=== PATIENT | female | born 1985 | race Caucasian/White ===

== ENCOUNTER 2018-04-27 10:46 | Outpatient (CLI) | payer OTHER ==
[2018-04-27 11:21] LABS: ADD UMIC NO; UR ASCORBIC ACID NEGATIVE (NEGATIVE); UR BILIRUBIN (Dip) NEGATIVE (NEGATIVE); UR BLOOD (Dip) NEGATIVE (NEGATIVE); UR CLARITY CLEAR (CLEAR); UR COLOR YELLOW (YELLOW); UR GLUCOSE (Dip) NEGATIVE (NEGATIVE); UR KETONES (Dip) TRACE mg/dL (NEGATIVE); UR LEUKOCYTE ESTERASE (Dip) NEGATIVE Leu/ul (NEGATIVE); UR NITRITE (Dip) NEGATIVE (NEGATIVE); UR SPECIFIC GRAVITY (Dip) 1.013 (1.003-1.030); UR TOTAL PROTEIN (Dip) NEGATIVE (NEGATIVE); UR UROBILINOGEN (Dip) 1+ mg/dL (NEGATIVE)
== END 2018-04-27 17:25 | disposition home or self-care (01) ==
LOC: OBT 10:46 → L-D 11:08 → OBT 17:25
DX: O26.843 Uterine size-date discrepancy, third trimester (principal); Z3A.35 35 weeks gestation of pregnancy
CPT/HCPCS: 76815; 76818; 76820; 81003

== ENCOUNTER 2018-04-29 09:18 | Outpatient (CLI) | payer OTHER | END 2018-04-29 11:50 | disposition home or self-care (01) | LOC: OBT 09:18 → L-D 09:18 → OBT 11:50 | DX: O62.9 Abnormality of forces of labor, unspecified (principal); Z3A.36 36 weeks gestation of pregnancy | CPT/HCPCS: 76815 ==

== ENCOUNTER 2018-05-04 22:48 | Outpatient (CLI) | payer OTHER ==
[2018-05-04 23:53] LABS: ADD UMIC NO; UR ASCORBIC ACID NEGATIVE (NEGATIVE); UR BILIRUBIN (Dip) NEGATIVE (NEGATIVE); UR BLOOD (Dip) NEGATIVE (NEGATIVE); UR CLARITY CLEAR (CLEAR); UR COLOR STRAW (YELLOW); UR GLUCOSE (Dip) NEGATIVE (NEGATIVE); UR KETONES (Dip) NEGATIVE (NEGATIVE); UR LEUKOCYTE ESTERASE (Dip) NEGATIVE Leu/ul (NEGATIVE); UR NITRITE (Dip) NEGATIVE (NEGATIVE); UR SPECIFIC GRAVITY (Dip) 1.011 (1.003-1.030); UR TOTAL PROTEIN (Dip) NEGATIVE (NEGATIVE); UR UROBILINOGEN (Dip) NEGATIVE (NEGATIVE)
[2018-05-05 00:48] LABS: ADD MAN DIFF? NO
[2018-05-05 00:50] LABS: BASOPHILS % 0.4 % (0.0-2.0); EOSINOPHILS # 0.3 10^3/ul (0.0-0.5); EOSINOPHILS % 4.2 % (0.0-7.0); HEMATOCRIT 31.9 % (37.0-47.0); LYMPHOCYTES # 2.4 10^3/ul (0.8-2.9); LYMPHOCYTES % 30.4 % (15.0-51.0); MEAN CORPUSCULAR HEMOGLOBIN 29.1 pg (29.0-33.0); MEAN CORPUSCULAR HGB CONC 31.3 g/dl (32.0-37.0); MEAN CORPUSCULAR VOLUME 92.7 fl (82.0-101.0); MEAN PLATELET VOLUME 9.2 fl (7.4-10.4); MONOCYTE # 0.5 10^3/ul (0.3-0.9); MONOCYTES % 6.4 % (0.0-11.0); NEUTROPHIL # 4.6 10^3/ul (1.6-7.5); NEUTROPHILS % 58.3 % (39.0-77.0); PLATELET COUNT 296 10^3/UL (140-415); RED BLOOD COUNT 3.44 10^6/ul (4.20-5.40); RED CELL DISTRIBUTION WIDTH 14.6 % (11.5-14.5)
[2018-05-05 00:50] LABS: WHITE BLOOD COUNT 7.8 10^3/ul (4.8-10.8)
[2018-05-05 01:08] LABS: ALANINE AMINOTRANSFERASE 12 IU/L (13-69); ALBUMIN 3.2 g/dl (3.3-4.9); ALKALINE PHOSPHATASE 131 IU/L (42-121); ANION GAP 10 (5-13); ASPARTATE AMINO TRANSFERASE 17 IU/L (15-46); BILIRUBIN,INDIRECT 0.1 mg/dl (0-1.1); BILIRUBIN,TOTAL 0.1 mg/dl (0.2-1.3); BLOOD UREA NITROGEN 8 mg/dl (7-20); CALCIUM 8.3 mg/dl (8.4-10.2); CARBON DIOXIDE 20 mmol/L (21-31); CHLORIDE 107 mmol/L (97-110); CREATININE 0.67 mg/dl (0.44-1.00); Estimated GFR > 60 mL/min (>60); GLUCOSE 81 mg/dl (70-220); POTASSIUM 3.5 mmol/L (3.5-5.1); SODIUM 137 mmol/L (135-144); TOTAL PROTEIN 6.4 g/dl (6.1-8.1)
== END 2018-05-05 01:18 | disposition home or self-care (01) ==
LOC: OBT 22:48 → L-D 22:49
DX: O62.9 Abnormality of forces of labor, unspecified (principal); Z3A.36 36 weeks gestation of pregnancy
CPT/HCPCS: 76775; 76818; 80053; 81003; 85025

== ENCOUNTER 2018-05-08 10:18 | Inpatient (IN) | payer OTHER ==
[~2018-05-08 10:18] MED LIST: OXYTOCIN 30 UNITS/LR 500 ML BAG IV
[2018-05-08] MEDS ORDERED: METHYLERGONOVINE 0.2 MG INJ IM ×2 (13:00→23:00)
[2018-05-08] MEDS ORDERED: CARBOPROST 250 MCG INJ IM ×2 (13:00→23:00)
[2018-05-08] MEDS ORDERED: OXYTOCIN 30 UNITS/LR 500 ML IV ×2 (13:00→23:00)
[2018-05-08] MEDS ORDERED: MISOPROSTOL 200 MCG TAB PR ×2 (13:00→23:00)
[2018-05-08] MEDS: LACTATED RINGER'S 1,000 ML IV ×3 (13:33→23:43)
[2018-05-08 13:51] LABS: ADD MAN DIFF? NO
[2018-05-08 13:54] LABS: BASOPHILS % 0.3 % (0.0-2.0); EOSINOPHILS # 0.2 10^3/ul (0.0-0.5); EOSINOPHILS % 3.1 % (0.0-7.0); HEMATOCRIT 38.2 % (37.0-47.0); HEMOGLOBIN 12.1 g/dl (12.0-16.0); LYMPHOCYTES # 1.5 10^3/ul (0.8-2.9); LYMPHOCYTES % 19.1 % (15.0-51.0); MEAN CORPUSCULAR HEMOGLOBIN 28.5 pg (29.0-33.0); MEAN CORPUSCULAR HGB CONC 31.7 g/dl (32.0-37.0); MEAN CORPUSCULAR VOLUME 90.1 fl (82.0-101.0); MEAN PLATELET VOLUME 9.4 fl (7.4-10.4); MONOCYTE # 0.6 10^3/ul (0.3-0.9); MONOCYTES % 7.5 % (0.0-11.0); NEUTROPHIL # 5.4 10^3/ul (1.6-7.5); NEUTROPHILS % 69.6 % (39.0-77.0); PLATELET COUNT 327 10^3/UL (140-415); RED BLOOD COUNT 4.24 10^6/ul (4.20-5.40); RED CELL DISTRIBUTION WIDTH 14.6 % (11.5-14.5)
[2018-05-08 13:54] LABS: WHITE BLOOD COUNT 7.7 10^3/ul (4.8-10.8)
[2018-05-08 14:21] LABS: INR 0.82; PROTIME 11.4 Sec (11.9-14.9); PT RATIO 0.9
[2018-05-08 14:22] LABS: PARTIAL THROMBOPLASTIN TIME 25.7 Sec (23.0-35.0)
[2018-05-08 14:57] LABS: HEPATITIS B SURFACE ANTIGEN NEGATIVE (NEGATIVE)
[2018-05-08] MEDS: CITRIC ACID/NA CITRATE 30 ML CUP PO (16:01)
[2018-05-08] MEDS: ONDANSETRON 4 MG INJ IV (16:02)
[2018-05-08] MEDS ORDERED: PHENYLephrine (100 MCG/ML) 10ML SYG (16:40)
[2018-05-08] MEDS ORDERED: morphine SULFATE/PF (10 MG/10 ML) INJ (16:41)
[2018-05-08] MEDS ORDERED: OXYTOCIN 10 UNIT INJ (16:41)
[2018-05-08] MEDS ORDERED: DEXAMETHASONE 4 MG/ML 1 ML INJ (17:13)
[2018-05-08] MEDS ORDERED: METOCLOPRAMIDE 10 MG INJ (17:13)
[2018-05-08] MEDS ORDERED: KETOROLAC 30 MG INJ (17:13)
[2018-05-08] MEDS ORDERED: DIPHENHYDRAMINE 50 MG INJ IV ×2 (17:30→23:00)
[2018-05-08] MEDS ORDERED: HYDROmorphONE 0.5 MG/0.5 ML SYG IV ×2 (17:30)
[2018-05-08] MEDS ORDERED: morphine 2 MG INJ IV ×2 (17:30)
[2018-05-08] MEDS ORDERED: ONDANSETRON 4 MG INJ IV ×2 (17:30→23:00)
[2018-05-08] MEDS ORDERED: NALOXONE (0.4 MG/ML) INJ IV (17:30)
[2018-05-08] MEDS ORDERED: NALBUPHINE HCL (10 MG/1 ML) INJ IV (17:30)
[2018-05-08] MEDS ORDERED: HYDROCODONE/APAP (5/325) TAB PO (17:30)
[2018-05-08] MEDS ORDERED: ACETAMINOPHEN 500 MG TAB PO (17:30)
[2018-05-08] MEDS: CEFAZOLIN 2 GM/50 ML (PMX) 50 ML IVPB (18:28)
[2018-05-08] MEDS: OXYTOCIN 30 UNITS/LR 500 ML IV (19:23)
[2018-05-08 20:13] LABS: RAPID PLASMA REAGIN NONREACTIVE (NR)
[2018-05-08] MEDS ORDERED: ZOLPIDEM 5 MG TAB PO (23:00)
[2018-05-08] MEDS ORDERED: LANOLIN HPA 1 PKT TOP (23:00)
[2018-05-09] MEDS: LACTATED RINGER'S 1,000 ML IV ×3 (08:00→15:58)
[2018-05-09 08:42] LABS: ADD MAN DIFF? NO
[2018-05-09] MEDS: SENNA/DOCUSATE NA (8.6MG/50MG) TAB PO ×2 (08:44→21:06)
[2018-05-09 08:46] LABS: WHITE BLOOD COUNT 13.2 10^3/ul (4.8-10.8)
[2018-05-09 08:46] LABS: BASOPHILS % 0.2 % (0.0-2.0); HEMATOCRIT 30.3 % (37.0-47.0); HEMOGLOBIN 9.5 g/dl (12.0-16.0); LYMPHOCYTES # 0.9 10^3/ul (0.8-2.9); LYMPHOCYTES % 7.1 % (15.0-51.0); MEAN CORPUSCULAR HEMOGLOBIN 28.6 pg (29.0-33.0); MEAN CORPUSCULAR HGB CONC 31.4 g/dl (32.0-37.0); MEAN CORPUSCULAR VOLUME 91.3 fl (82.0-101.0); MEAN PLATELET VOLUME 9.2 fl (7.4-10.4); MONOCYTE # 0.6 10^3/ul (0.3-0.9); MONOCYTES % 4.3 % (0.0-11.0); NEUTROPHIL # 11.6 10^3/ul (1.6-7.5); NEUTROPHILS % 87.9 % (39.0-77.0); PLATELET COUNT 303 10^3/UL (140-415); RED BLOOD COUNT 3.32 10^6/ul (4.20-5.40); RED CELL DISTRIBUTION WIDTH 14.4 % (11.5-14.5)
[2018-05-09] MEDS: KETOROLAC 30 MG INJ IV (15:57)
[2018-05-09] MEDS: OXYCODONE/ACETAMINOPHEN (5/325) TAB PO (21:06)
[2018-05-10] MEDS: LACTATED RINGER'S 1,000 ML IV
[2018-05-10] MEDS: IBUPROFEN 600 MG TAB PO ×5 (00:19→23:51)
[2018-05-10] MEDS: OXYCODONE/ACETAMINOPHEN (5/325) TAB PO ×2 (08:16→20:23)
[2018-05-10] MEDS: SENNA/DOCUSATE NA (8.6MG/50MG) TAB PO ×2 (08:16→20:23)
[2018-05-10] MEDS: FERROUS SULFATE (EC) 325 MG TAB PO ×2 (08:16→20:22)
[2018-05-10] MEDS: AZITHROMYCIN 250 MG TAB PO (22:39)
[2018-05-10] MEDS: GUAIFENESIN 20 MG/ML 5ML CUP PO (22:39)
[2018-05-11] MEDS: GUAIFENESIN 20 MG/ML 5ML CUP PO (04:45)
[2018-05-11] MEDS: IBUPROFEN 600 MG TAB PO ×2 (05:52→12:16)
[2018-05-11] MEDS: AZITHROMYCIN 250 MG TAB PO (08:31)
[2018-05-11] MEDS: SENNA/DOCUSATE NA (8.6MG/50MG) TAB PO (08:31)
[2018-05-11] MEDS: FERROUS SULFATE (EC) 325 MG TAB PO (08:31)
[2018-05-11] MEDS: DIPHTH/TET/ACEL PERTUSS (ADULT) 0.5 ML VIAL IM* (08:34)
[2018-05-11] MEDS: OXYCODONE/ACETAMINOPHEN (5/325) TAB PO ×2 (08:39→14:48)
== END 2018-05-11 17:45 | disposition home or self-care (01) | DRG 788 ==
LOC: OBT 10:18 → L-D 10:21 → OBT 12:30 → L-D 12:30 → PP1 22:31
PROVIDERS: Obstetrics & Gynecology
PROC: 10D00Z1 Extraction of Products of Conception, Low, Open Approach (ICD-10-PCS; principal; 2018-05-08)
DX: O34.211 Maternal care for low transverse scar from previous cesarean delivery (principal); O69.81X0 Labor and delivery complicated by cord around neck, without compression, not applicable or unspecified; O36.5930 Maternal care for other known or suspected poor fetal growth, third trimester, not applicable or unspecified; Z3A.37 37 weeks gestation of pregnancy; Z37.0 Single live birth
CPT/HCPCS: 76815; 76818; 85025; 85610; 85730; 86592; 86850; 86900; 86901; 87340; 90686; 90715; 99464